=== PATIENT | female | born 1950 | race Caucasian/White ===

== ENCOUNTER 2016-12-08 13:05 | Outpatient (CLI) | payer OTHER ==
--- NOTE | 2016-12-08 14:31 | DIAGNOSTIC IMAGING REPORT ---
PROCEDURE: US NONVASCULAR EXTREMITY-RIGHT INDICATION: Right thigh soft tissue masses, enlarging but no pain. TECHNIQUE: Phillips scale and color Doppler sonographic images of the right thigh posterolateral, and right thigh upper inner were obtained COMPARISON: None. FINDINGS: In the upper inner right thigh, there is a gently lobulated, vaguely ovoid, horizontally oriented mass isoechoic to subcutaneous tissue measuring 2.6 x 1.4 x 3.0 cm in the area of palpable abnormality. There is no suspicious internal vascularity or posterior shadowing. No infiltration of the underlying muscle. In the posterolateral thigh, there is a fairly well defined ovoid mass, horizontally oriented in the deep subcutaneous tissues and indenting on the underlying muscle which measures approximately 0.5 x 6.3 x 3.1 cm. The deep border is well defined and there is no infiltration of underlying tissue. Lateral borders are less well defined. Color Doppler imaging demonstrates trace internal vascularity. No suspicious shadowing. IMPRESSION: 1. Findings suggestive of lipomas in the posterolateral and upper inner thigh. No suspicious features.
== END 2016-12-08 23:00 ==
LOC: US SRH 13:05
DX: R22.41 Localized swelling, mass and lump, right lower limb (principal)